=== PATIENT | female | born 1990 | race American Indian/Alaskan Native ===

== ENCOUNTER 2016-04-15 21:00 | Inpatient (IN) | payer MEDICAID ==
[2016-04-15] MEDS ORDERED: NACL 0.9% 1000 ML 1,000 ML IV ONE ×2 (22:02→23:32)
--- NOTE | 2016-04-15 22:12 | Emergency Department Report ---
HPI - General Chief Complaint: Hyperglycemia Time Seen by Provider: 04/15/16 22:00 - HPI HPI: Room 20 The patient is a 26-year-old female presenting with a chief complaint of altered mental status hyperglycemia. Patient is nonverbal during exam but appears restless. Per EMS they were called secondary to chest pain and back pain for 4 hours. The patient was restless and found to have a "high" Accu- Chek. Per EMS the patient was presented with an SVT with a rate in the 190s. Patient was given adenosine 6 mg, 12 mg and then 12 mg with improvement of heart rate to the 120s. No rhythm strip was provided by EMS Location: Unknown, see above Duration:, See above Quality: [see above] Severity: [see above] Modifying factors: [see above] Context: [see above] Mode of transportation: EMS ED Past Medical Hx - Past Medical History Hx Diabetes: Yes Hx Seizures: Yes - Family History Family history: no significant - Social History Smoking Status: Unknown if ever smoked ED Review of Systems ROS: Stated complaint: CHEST/BACK PAIN Other details as noted in HPI Comment: Unobtainable due to pts medical conditions Physical Exam - Physical Exam Physical Exam: GENERAL: The patient is well-developed well-nourished female lying on stretcher appearing her restless but nonverbal. And does not respond to sternal rub but does have a gag reflex HEENT: Normocephalic. Atraumatic. NECK: Supple. Trachea midline CHEST/LUNGS: Clear to auscultation. There is no respiratory distress noted. HEART/CARDIOVASCULAR: Regular. There is tachycardia. There is no gallop rub or murmur. ABDOMEN: Abdomen is soft, nontender. Patient has normal bowel sounds. There is no abdominal distention. SKIN: There is no rash. There is no edema. There is no diaphoresis. NEURO: The patient is obtunded. Patient moves all extremities well MUSCULOSKELETAL: There is no evidence of acute injury. ED Course - Reevaluation(s) Reevaluation #1: 04/15/16 23:33 Lab called as I still have not received the patient's potassium result. Unable to initiate insulin drip until current potassium token be ascertained. We'll continue to give IV fluids. Lab states they process the potassium now. Urgency of situation expressed to lab and they verbalized understanding ED Medical Decision Making - Lab Data Result diagrams: 04/15/16 22:35 04/15/16 22:35 Laboratory Tests 04/15/16 04/15/16 04/15/16 22:19 22:35 22:35 WBC 21.5 H RBC 5.07 H Hgb 12.7 Hct 48.4 H MCV 96 MCH 25 L MCHC 26 L RDW 19.2 H Plt Count 572 H Add Manual Diff Complete Total Counted 100 Seg Neuts % (Manual) 73.0 H Band Neutrophils % 6.0 Lymphocytes % (Manual) 15.0 Reactive Lymphs % (Man) 0 Monocytes % (Manual) 6.0 Eosinophils % (Manual) 0 Basophils % (Manual) 0 Metamyelocytes % 0 Myelocytes % 0 Promyelocytes % 0 Blast Cells % 0 Nucleated RBC % Not Reportable Seg Neutrophils # Man 15.7 H Band Neutrophils # 1.3 Lymphocytes # (Manual) 3.2 Abs React Lymphs (Man) 0.0 Monocytes # (Manual) 1.3 H Eosinophils # (Manual) 0.0 Basophils # (Manual) 0.0 Metamyelocytes # 0.0 Myelocytes # 0.0 Promyelocytes # 0.0 Blast Cells # 0.0 WBC Morphology Not Reportable Hypersegmented Neuts Not Reportable Hyposegmented Neuts Not Reportable Hypogranular Neuts Not Reportable Smudge Cells Not Reportable Toxic Granulation Not Reportable Toxic Vacuolation Not Reportable Dohle Bodies Not Reportable Pelger-Huet Anomaly Not Reportable Kylie Rods Not Reportable Platelet Estimate Appears increased Clumped Platelets Not Reportable Plt Clumps, EDTA Not Reportable Large Platelets Few Giant Platelets Not Reportable Platelet Satelliting Not Reportable Plt Morphology Comment Not Reportable RBC Morphology Not Reportable Dimorphic RBCs Not Reportable Polychromasia Not Reportable Hypochromasia Few Poikilocytosis Not Reportable Anisocytosis 1+ Microcytosis Not Reportable Macrocytosis Not Reportable Spherocytes Not Reportable Pappenheimer Bodies Not Reportable Sickle Cells Not Reportable Target Cells Not Reportable Tear Drop Cells Not Reportable Ovalocytes Not Reportable Helmet Cells Not Reportable [place] Sou[place] Bodies Not Reportable [place] Rings Not Reportable [place] Cells Not Reportable Bite Cells Not Reportable Crenated Cell Not Reportable Elliptocytes Not Reportable Acanthocytes (Spur) Not Reportable Rouleaux Not Reportable Hemoglobin C Crystals Not Reportable Schistocytes Not Reportable Malaria parasites Not Reportable Antoine Bodies Not Reportable Hem Pathologist Commnt No VBG pH Sodium 132 L Potassium 7.5 H* Chloride 87.0 L Carbon Dioxide 5 L* Anion Gap 48 BUN 27 H Creatinine 1.6 H Estimated GFR 47 BUN/Creatinine Ratio 16.87 Glucose 1289 H* Calcium 9.3 Total Creatine Kinase CK-MB (CK-2) CK-MB (CK-2) Rel Index Troponin T < 0.010 TSH Free T4 Urine Color Colorless Urine Turbidity Clear Urine pH 5.0 Ur Specific [place] 1.018 Urine Protein 30 mg/dl Urine Glucose (UA) >=500 Urine Ketones 20 Urine Blood Sm Urine Nitrite Neg Ur Reducing Substances Not Reportable Urine Bilirubin Neg Urine Ictotest Not Reportable Urine Urobilinogen < 2.0 Ur Leukocyte Esterase Neg Urine WBC (Auto) < 1.0 Urine RBC (Auto) 2.0 U Epithel Cells (Auto) 1.0 Urine Bacteria (Auto) 1+ Urine Mucus Few Urine HCG, Qual Negative Ketones 108.5 H 04/15/16 04/15/16 04/15/16 22:35 22:35 22:35 WBC RBC Hgb Hct MCV MCH MCHC RDW Plt Count Add Manual Diff Total Counted Seg Neuts % (Manual) Band Neutrophils % Lymphocytes % (Manual) Reactive Lymphs % (Man) Monocytes % (Manual) Eosinophils % (Manual) Basophils % (Manual) Metamyelocytes % Myelocytes % Promyelocytes % Blast Cells % Nucleated RBC % Seg Neutrophils # Man Band Neutrophils # Lymphocytes # (Manual) Abs React Lymphs (Man) Monocytes # (Manual) Eosinophils # (Manual) Basophils # (Manual) Metamyelocytes # Myelocytes # Promyelocytes # Blast Cells # WBC Morphology Hypersegmented Neuts Hyposegmented Neuts Hypogranular Neuts Smudge Cells Toxic Granulation Toxic Vacuolation Dohle Bodies Pelger-Huet Anomaly Kylie Rods Platelet Estimate Clumped Platelets Plt Clumps, EDTA Large Platelets Giant Platelets Platelet Satelliting Plt Morphology Comment RBC Morphology Dimorphic RBCs Polychromasia Hypochromasia Poikilocytosis Anisocytosis Microcytosis Macrocytosis Spherocytes Pappenheimer Bodies Sickle Cells Target Cells Tear Drop Cells Ovalocytes Helmet Cells De Sou[place] Bodies [place] Rings Sullivan Cells Bite Cells Crenated Cell Elliptocytes Acanthocytes (Spur) Rouleaux Hemoglobin C Crystals Schistocytes Malaria parasites Antoine Bodies Hem Pathologist Commnt VBG pH 6.817 L* Sodium Potassium Chloride Carbon Dioxide Anion Gap BUN Creatinine Estimated GFR BUN/Creatinine Ratio Glucose Calcium Total Creatine Kinase 65 CK-MB (CK-2) < 1.0 CK-MB (CK-2) Rel Index 1.5 Troponin T < 0.010 TSH 0.359 Free T4 0.98 Urine Color Urine Turbidity Urine pH Ur Specific [place] Urine Protein Urine Glucose (UA) Urine Ketones Urine Blood Urine Nitrite Ur Reducing Substances Urine Bilirubin Urine Ictotest Urine Urobilinogen Ur Leukocyte Esterase Urine WBC (Auto) Urine RBC (Auto) U Epithel Cells (Auto) Urine Bacteria (Auto) Urine Mucus Urine HCG, Qual Ketones - EKG Data -: EKG Interpreted by Me EKG shows normal: sinus rhythm Rate: tachycardia (131 bpm) - EKG Data When compared to previous EKG there are: previous EKG unavailable 04/16/16 00:17 Called into the room because moderate patient had a heart rate of 240. I suspect this is secondary to the computer misreading T waves as QRS complexes. Second EKG revealed a true heart rate of approximately 140 bpm - Differential Diagnosis DKA, SVT Critical care attestation.: If time is entered above; I have spent that time in minutes in the direct care of this critically ill patient, excluding procedure time. ED Disposition Clinical Impression: DKA (diabetic ketoacidoses), Tachycardia, Dehydration Disposition: OP ADMITTED IP TO THIS HOSP Is pt being admited?: Yes Does the pt Need Aspirin: No Condition: Serious Instructions: Diabetic Ketoacidosis (ED) Referrals: PRIMARY CARE, [Primary Care Provider] - 3-5 Days Time of Disposition: 23:59 (hospitalist paged)
[2016-04-15 23:07] LABS: Mean Corpuscular HGB Conc 26 % (30-34); Mean Corpuscular Volume 96 fl (79-97); Platelet Count 572 K/mm3 (140-440); Red Blood Count 5.07 M/mm3 (3.65-5.03); Red Cell Distribution Width 19.2 % (13.2-15.2)
[2016-04-15 23:08] LABS: Hematocrit 48.4 % (30.3-42.9); Hemoglobin 12.7 gm/dl (10.1-14.3); Mean Corpuscular Hemoglobin 25 pg (28-32); White Blood Count 21.5 K/mm3 (4.5-11.0)
[2016-04-15] MEDS ORDERED: SODIUM BICARBONATE IV ONE (23:13)
[2016-04-15 23:14] LABS: Bacteria,Urine 1+ /HPF (Negative); Bilirubin,Urine NEG (Negative); Blood,Urine SM (Negative); Ketones,Urine 20 mg/dL (Negative); Leukocyte Esterase,Urine NEG (Negative); Mucus,Urine FEW /HPF; Nitrite,Urine NEG (Negative); Urobilinogen,Urine < 2.0 mg/dL (<2.0); WBC,Urine < 1.0 /HPF (0.0-6.0)
[2016-04-15 23:24] LABS: Creatine Kinase 65 units/L (30-135)
[2016-04-15 23:33] LABS: Creatine Kinase MB < 1.0 ng/mL (0.0-4.0)
[2016-04-15] MEDS ORDERED: NovoLIN R 100 UNITS in NACL 0.9% 99 ML IV SCH (23:45)
[2016-04-15 23:48] LABS: BUN/Creatinine Ratio 16.87; Blood Urea Nitrogen 27 mg/dL (7-17); Calcium 9.3 mg/dL (8.4-10.2); Sodium 132 mmol/L (137-145)
[2016-04-15 23:52] LABS: Anisocytosis 1+; Basophils % (Manual) 0 % (0.0-1.8); Blastocytes % (Manual) 0 %; Eosinophils % (Manual) 0 % (0.0-4.3); Hypochromasia Few
[2016-04-15 23:53] LABS: Diff Status Complete; Large Platelets Few; Platelet Estimate Appears Increased
[2016-04-15 23:55] LABS: Carbon Dioxide 5 mmol/L (22-30)
[2016-04-15] MEDS ORDERED: D50W (25GM) IV PRN (23:55)
[2016-04-15 23:56] LABS: Anion Gap 48 mmol/L; Potassium 7.5 mmol/L (3.6-5.0)
[2016-04-16 00:01] LABS: B-Hydroxybutyrate 108.5 mg/dL (0.2-2.8); Glucose 1289 mg/dL (65-100)
[2016-04-16] MEDS ORDERED: NACL 0.9% 1000 ML 1,000 ML IV ONE (00:32)
[2016-04-16] MEDS ORDERED: CALCIUM CHLORIDE 1,000 MG in NACL 0.9% 100 ML IV ONE (00:32)
[2016-04-16] MEDS ORDERED: ROCEPHIN/NS 1 GM/50 ML 50 ML IV SCH (00:33)
[2016-04-16 00:47] LABS: BUN/Creatinine Ratio 17.33; Calcium 9.7 mg/dL (8.4-10.2); Chloride 86.8 mmol/L (98-107); Magnesium 3.5 mg/dL (1.7-2.3); Phosphorous 11.5 mg/dL (2.5-4.5)
[2016-04-16] MEDS ORDERED: NACL 0.9% 1000 ML 1,000 ML IV SCH (01:00)
[2016-04-16 01:03] LABS: Potassium 7.4 mmol/L (3.6-5.0)
--- NOTE | 2016-04-16 01:18 | History and Physical Report ---
History of Present Illness Date of examination: 04/16/16 Date of admission: 04/16/16 00:34 Medications and Allergies Allergies Allergy/AdvReac Type Severity Reaction Status Date / Time No Known Allergies Allergy Unverified 04/15/16 21:26 Active Meds: Active Medications Dextrose (D50w (25gm)) 0 ml IV ONCE PRN PRN Reason: Hypoglycemia Insulin Human Regular 100 (units/ Sodium Chloride) 100 mls @ 6 mls/hr IV TITR GENIE; 6 UNITS/HR PRN Reason: Protocol Ceftriaxone Sodium (Rocephin/Ns 1 Gm/50 Ml) 50 mls @ 100 mls/hr IV Q24HR GENIE PRN Reason: Protocol Sodium Chloride (Nacl 0.9% 1000 Ml) 1,000 mls @ 150 mls/hr IV DIRECT GENIE Sodium Chloride (Nacl 0.9% 1000 Ml) 1,000 mls @ 999 mls/hr IV ONCE ONE Stop: 04/16/16 01:32 Exam - Physical Exam Narrative exam: Gen. appearance: Patient lying in bed, no apparent distress HEENT: Normocephalic, atraumatic, pupils equally round and reactive to light, unable to do extraocular movement, and no sclericterus,. No JVD or thyromegaly or nodule,neck supple, no carotid bruit ,mucous membranes moist, no exudate or erythema Heart: S1, S2, regular rate and rhythm Lungs: Clear to auscultation bilaterally, breathing comfortable Abdomen: Positive bowel sounds, nontender, nondistended, no organomegaly Extremity: No edema, cyanosis, clubbing Skin: No rash, nodules, warm, dry Neuro: Lethargic - Constitutional Vitals: Temp Pulse Resp BP Pulse Ox 30 H 98 04/16/16 01:05 04/16/16 01:05 Results - Labs CBC & Chem 7: 04/15/16 22:35 04/16/16 00:22 - Imaging and Cardiology EKG: image reviewed (st 120) Assessment and Plan Severe DKA Metabolic acidosis Hyperkalemia Leukocytosis, probably stress and use, rule out infection Dehydration Admits medicine Start aggressive IV fluids, insulin drip Give bicarbonate, calcium, monitor potassium, fingersticks and serial chemistry Start IV Rocephin, check lactate, chest x-ray, follow blood cultures Consult critical care Start DVT prophylaxis
[2016-04-16] MEDS ORDERED: ROCEPHIN/NS 1 GM/50 ML 50 ML IV ONE (01:25)
--- NOTE | 2016-04-16 01:34 | Admit Criteria Form ---
Admission Criteria Documentation: DIABETES Clinical Indications for Admission to Inpatient Care (Place 'X' for any and all applicable criteria): Admission is indicated by presence of ALL (if I & II) or ANY ONE (if III or IV) of the following (1)(2)(3)(4): [ ]I. Diabetes is uncontrolled as indicated by ANY ONE of the following: [ ]a) Diabetic ketoacidosis as indicated by ALL of the following (8): [ ]i) Hyperglycemia (eg, plasma glucose greater than 200 mg/ dL (11.1 mmol/L)) [ ]ii) Acidosis (eg, arterial pH less than 7.30, serum bicarbonate level less than 15 mEq/L (mmol/L)) [ ]iii) Moderate ketonuria or ketonemia [ ]b) Hyperglycemic hyperosmolar state as indicated by ALL of the following(9)(10): [ ]i) Neurologic dysfunction (eg, stupor, coma, hemiparesis , seizure)(13) [ ]ii) Plasma glucose greater than 600 mg/dL (33.3 mmol/L) [ ]iii) Serum osmolality greater than 320 mOsm/kg (mmol/kg) [ ]c) Severe signs or symptoms secondary to hyperglycemia indicated by ANY ONE of the following: [ ]i) Altered mental status(10) [ ]ii) Significant hypovolemia or dehydration [ ]iii) Intractable nausea or vomiting [ ]iv) Unexplained fever or severe infection [ ]v) Severe electrolyte abnormality (eg, hypokalemia, hyperkalemia, hypernatremia) [ ]II. Management at other levels of care (Also use Diabetes: Observation Care as appropriate) is not feasible because of ANY ONE of the following: [ ]a) Condition was not adequately corrected with treatment at other levels of care. [ ]b) Treatment at other levels of care is not appropriate because of condition severity (eg, hyperosmolar coma). [X ]III. Contraindications and/or Inappropriate clinical situations for Observational Care in patients with Diabetes, when ANY ONE of the following is required: [ ]a) Patient require specific diagnostic workup or therapeutic intervention 22 [ X]b) Patient with abnormal vital signs or altered mental status 23 [ ]IV. General contraindications and/or Inappropriate clinical situations for Observational Care in patients with Diabetes, when ANY ONE of the following is required: [ ]a) Prediction of prolongation of LOS based on ANY ONE of the following may be considered as a contraindication for observational care 2, 3, 4, 5, 6, 7, 8, 9, 10, 11 [ ]i) Age > 65 yrs. [ ]ii) Patient arriving by ambulance [ ]iii) Patient with high acuity [ ]iv) Patient requiring vital sign monitoring [ ]v) Patient on IV medication [ ]b) Systolic blood pressures 180mmHg 3,12 [ ]c) Patient with altered mental status including delirium and other alteration of consciousness, (3) [ ]d) Patient whose discharge disposition will be to a longterm home or rehabilitation home should not be managed in Emergency Department Observation Unit. CMS rule requires 3 days hospital stay before such placement.3,13 [ ]e) Patient with failure to thrive due to broad array of etiologies 3,16,17 [ ]f) Inability to ambulate 3,14 Extended stay beyond goal length of stay may be needed for(3)(20): [ ]a) Treatment of precipitating causes [ ]b) Development of hypoglycemia [ ]c) Complications of treatment [ ]d) Complications of decompensated diabetes (eg, acute gastric dilatation, persistent metabolic or neurologic derangement) [ ]e) Active Comorbidities [ ]f) Older patients( 65 years or older) The original [email or web address] content created by [email or web address] has been revised. The portions of the content which have been revised are identified through the use of italic text or in bold,and [facility] has neither reviewed nor approved the modified material. All other unmodified content is copyright [email or web address]. Please see references footnoted in the original [email or web address] edition 2016 Admission Criteria Met: Yes
[2016-04-16] MEDS ORDERED: NACL 0.9% 1000 ML 1,000 ML ONE (02:38)
[2016-04-16 03:42] LABS: BUN/Creatinine Ratio 15.88; Calcium 10.2 mg/dL (8.4-10.2); Chloride 105.6 mmol/L (98-107); Potassium 5.3 mmol/L (3.6-5.0)
[2016-04-16] MEDS ORDERED: TYLENOL PR PRN (04:27)
[2016-04-16] MEDS ORDERED: NovoLIN R 100 UNITS in NACL 0.9% 99 ML IV SCH (04:27)
[2016-04-16] MEDS ORDERED: ZOFRAN IV PRN (04:27)
[2016-04-16] MEDS ORDERED: D50W (25GM) IV PRN ×4 (04:27→21:05)
[2016-04-16 05:29] LABS: BUN/Creatinine Ratio 16.66; Calcium 10.1 mg/dL (8.4-10.2); Chloride 111.7 mmol/L (98-107); Magnesium 2.9 mg/dL (1.7-2.3)
[2016-04-16] MEDS: D5/0.45NS 1,000 ML IV SCH ×3 (06:25→21:07)
--- NOTE | 2016-04-16 07:39 | XRay Report ---
CHEST ONE VIEW INDICATION: Altered mental status. COMPARISON: None similar at this institution. FINDINGS: Portable, frontal chest radiographs, 2 images, demonstrate normal cardiomediastinal silhouette. Clear lungs. Unremarkable bones. Extrinsic EKG leads. CONCLUSION: No acute disease in the chest. Thank you for the opportunity to participate in this patient's care.
--- NOTE | 2016-04-16 09:37 | Consultation ---
History of Present Illness - Reason for Consult Consult date: 04/16/16 DKA/ ICU care - History of Present Illness 26 y/o female diabetic, admitted with DKA. Per patient ran out of insulin for approximately one day. Blood sugar greater than 1000 on admission. Started on insulin drip. Last anion gap was 34. Remainder is negative. Past History Past Medical History: diabetes Past Surgical History: No surgical history Social history: no significant social history Medications and Allergies Allergies Allergy/AdvReac Type Severity Reaction Status Date / Time No Known Allergies Allergy Unverified 04/15/16 21:26 Home Medications Medication Instructions Recorded Confirmed Last Taken Type Unobtainable 04/16/16 04/16/16 Unknown History Active Meds: Active Medications Acetaminophen (Tylenol) 650 mg PO Q6H PRN PRN Reason: Pain Acetaminophen (Tylenol) 650 mg MA Q6H PRN PRN Reason: Pain MILD(1-3)/Fever >100.5/AU Dextrose (D50w (25gm)) 0 ml IV ONCE PRN PRN Reason: Hypoglycemia Enoxaparin Sodium (Lovenox) 40 mg SUB-Q QDAY@1000 GENIE Ceftriaxone Sodium (Rocephin/Ns 1 Gm/50 Ml) 50 mls @ 100 mls/hr IV Q24HR GENIE PRN Reason: Protocol Last Admin: 04/16/16 01:37 Dose: 100 mls/hr Dextrose/Sodium Chloride (D5/0.45ns) 1,000 mls @ 150 mls/hr IV DIRECT GENIE Last Admin: 04/16/16 06:25 Dose: 150 mls/hr Insulin Human Regular 100 (units/ Sodium Chloride) 100 mls @ 1 mls/hr IV TITR GENIE; 1 UNITS/HR PRN Reason: Protocol Ondansetron HCl (Zofran) 4 mg IV Q8H PRN PRN Reason: N/V unrelieved by Reglan Review of Systems All systems: negative Constitutional: other (thirsty, dry mouth) Exam - Constitutional Vitals: Temp Pulse Resp BP Pulse Ox 99.3 F 130 H 15 115/76 97 04/16/16 08:00 04/16/16 09:00 04/16/16 09:00 04/16/16 09:00 04/16/16 09:00 General appearance: Present: no acute distress, disheveled, other (multiple tattoos) - EENT Eyes: Present: PERRL, EOM intact ENT: hearing intact, clear oral mucosa - Neck Neck: Present: supple - Respiratory Respiratory effort: normal Respiratory: bilateral: CTA - Cardiovascular Rhythm: regular (sinus tachycardia) - Extremities Extremities: no ischemia - Abdominal General gastrointestinal: Present: soft, non-tender Female genitourinary: Present: deferred - Rectal Rectal Exam: deferred - Integumentary Integumentary: Present: warm - Musculoskeletal Musculoskeletal: strength equal bilaterally - Neurologic Neurologic: CNII-XII intact Results - Labs CBC & Chem 7: 04/15/16 22:35 04/16/16 04:43 Labs: Abnormal lab results 04/16/16 04/16/16 04/16/16 Range/Units 03:20 03:20 04:43 Sodium 148 H D 152 H (137-145) mmol/L Potassium 5.3 H D (3.6-5.0) mmol/L Chloride 111.7 H (98-107) mmol/L Carbon Dioxide 5 L* 7 L* (22-30) mmol/L BUN 27 H 25 H (7-17) mg/dL Creatinine 1.7 H 1.5 H (0.7-1.2) mg/dL Glucose 725 H* 465 H (65-100) mg/dL POC Glucose (70-105) Lactic Acid 7.9 H* (0.7-2.0) mmol/L Phosphorus 2.0 L D (2.5-4.5) mg/dL Magnesium 2.9 H (1.7-2.3) mg/dL 04/16/16 04/16/16 Range/Units 04:55 06:12 Sodium (137-145) mmol/L Potassium (3.6-5.0) mmol/L Chloride (98-107) mmol/L Carbon Dioxide (22-30) mmol/L BUN (7-17) mg/dL Creatinine (0.7-1.2) mg/dL Glucose (65-100) mg/dL POC Glucose 378 H 254 H (70-105) Lactic Acid (0.7-2.0) mmol/L Phosphorus (2.5-4.5) mg/dL Magnesium (1.7-2.3) mg/dL - Imaging and Cardiology Chest x-ray: image reviewed (clear) Assessment and Plan 26 y/o female with dka 1. Continue Insulin Drip 2. Needs normal saline for now until blood sugar is less than 250 then switch to D5W with 1/2 normal saline 3. MOnitor potassium 4. Repeat lactic acid levels 5. Hold on abx therapy 6. Repeat CBC in am. CCT 31 minutes.
[2016-04-16 09:41] LABS: Hematocrit 39.6 % (30.3-42.9); Hemoglobin 12.5 gm/dl (10.1-14.3); Mean Corpuscular HGB Conc 32 % (30-34); Mean Corpuscular Volume 79 fl (79-97); Platelet Count 455 K/mm3 (140-440); Red Blood Count 5.04 M/mm3 (3.65-5.03); Red Cell Distribution Width 16.8 % (13.2-15.2)
[2016-04-16 09:43] LABS: White Blood Count 24.3 K/mm3 (4.5-11.0)
[2016-04-16 09:44] LABS: Mean Corpuscular Hemoglobin 25 pg (28-32)
[2016-04-16] MEDS: LOVENOX SUB-Q SCH (09:57)
[2016-04-16 10:02] LABS: BUN/Creatinine Ratio 20.83; Blood Urea Nitrogen 25 mg/dL (7-17); Carbon Dioxide 16 mmol/L (22-30); Chloride 123.2 mmol/L (98-107); Glucose 184 mg/dL (65-100); Potassium 4.5 mmol/L (3.6-5.0); Sodium 158 mmol/L (137-145)
[2016-04-16 10:03] LABS: Anion Gap 23 mmol/L
[2016-04-16] MEDS: TYLENOL PO PRN (11:26)
[2016-04-16] MEDS: KEPPRA PO SCH ×2 (11:29→21:08)
[2016-04-16 16:25] LABS: Anion Gap 20 mmol/L; BUN/Creatinine Ratio 24.44; Blood Urea Nitrogen 22 mg/dL (7-17); Calcium 9.1 mg/dL (8.4-10.2); Carbon Dioxide 17 mmol/L (22-30); Chloride 119.2 mmol/L (98-107); Glucose 136 mg/dL (65-100); Potassium 4.7 mmol/L (3.6-5.0); Sodium 151 mmol/L (137-145)
--- NOTE | 2016-04-16 17:09 | Progress Note ---
Assessment and Plan Assessment and plan: 1. DKA due to non compliance- will transition to sc inuslin calculated AG 14.8; consistent carb diet; monitor accucheks; cotn IVF; overlap insulin gtt for 4 hrs and will d/c after 4 hrs if AG remains closed 2. Leukocytosis- due to DKA- montior 3. HYpernatrermi- due to dehydration- cont IVF; monitor 4. Seizure cont keppra; stable 5. DVT prophylaxis- lovenox CCT exclusive of all other billable procedures 34 minutes History Interval history: F/u DKA PAtient seen at the bedside; lethargic; she has been non compliant with insulin Hospitalist Physical - Constitutional Vitals: Temp Pulse Resp BP Pulse Ox 98.9 F 109 H 20 115/63 99 04/16/16 16:20 04/16/16 16:20 04/16/16 16:00 04/16/16 16:00 04/16/16 16:00 General appearance: Present: no acute distress, other (mm dry) - EENT Eyes: Present: PERRL, EOM intact. Absent: scleral icterus, conjunctival injection ENT: hearing intact - Neck Neck: Present: supple, normal ROM. Absent: enlarged thyroid, masses or JVD - Respiratory Respiratory effort: normal Respiratory: negative: diminished, rales, rhonchi, wheezing - Cardiovascular Rhythm: regular Heart Sounds: Present: S1 & S2. Absent: gallop - Extremities Extremities: no ischemia, pulses intact, pulses symmetrical, No edema Peripheral Pulses: within normal limits - Abdominal General gastrointestinal: soft, non-tender, non-distended - Integumentary Integumentary: Present: clear - Psychiatric Psychiatric: cooperative - Neurologic Neurologic: CNII-XII intact, moves all extremities Results - Labs CBC & Chem 7: 04/16/16 09:16 04/16/16 15:25 Labs: Laboratory Last Values WBC 24.3 K/mm3 (4.5-11.0) H 04/16/16 09:16 RBC 5.04 M/mm3 (3.65-5.03) H 04/16/16 09:16 Hgb 12.5 gm/dl (10.1-14.3) 04/16/16 09:16 Hct 39.6 % (30.3-42.9) D 04/16/16 09:16 MCV 79 fl (79-97) D 04/16/16 09:16 MCH 25 pg (28-32) L 04/16/16 09:16 MCHC 32 % (30-34) 04/16/16 09:16 RDW 16.8 % (13.2-15.2) H 04/16/16 09:16 Plt Count 455 K/mm3 (140-440) H 04/16/16 09:16 Add Manual Diff Complete 04/15/16 22:35 Total Counted 100 04/15/16 22:35 Seg Neuts % (Manual) 73.0 % (40.0-70.0) H 04/15/16 22:35 Band Neutrophils % 6.0 % 04/15/16 22:35 Lymphocytes % (Manual) 15.0 % (13.4-35.0) 04/15/16 22:35 Reactive Lymphs % (Man) 0 % 04/15/16 22:35 Monocytes % (Manual) 6.0 % (0.0-7.3) 04/15/16 22:35 Eosinophils % (Manual) 0 % (0.0-4.3) 04/15/16 22:35 Basophils % (Manual) 0 % (0.0-1.8) 04/15/16 22:35 Metamyelocytes % 0 % 04/15/16 22:35 Myelocytes % 0 % 04/15/16 22:35 Promyelocytes % 0 % 04/15/16 22:35 Blast Cells % 0 % 04/15/16 22:35 Nucleated RBC % Not Reportable 04/15/16 22:35 Seg Neutrophils # Man 15.7 K/mm3 (1.8-7.7) H 04/15/16 22:35 Band Neutrophils # 1.3 K/mm3 04/15/16 22:35 Lymphocytes # (Manual) 3.2 K/mm3 (1.2-5.4) 04/15/16 22:35 Abs React Lymphs (Man) 0.0 K/mm3 04/15/16 22:35 Monocytes # (Manual) 1.3 K/mm3 (0.0-0.8) H 04/15/16 22:35 Eosinophils # (Manual) 0.0 K/mm3 (0.0-0.4) 04/15/16 22:35 Basophils # (Manual) 0.0 K/mm3 (0.0-0.1) 04/15/16 22:35 Metamyelocytes # 0.0 K/mm3 04/15/16 22:35 Myelocytes # 0.0 K/mm3 04/15/16 22:35 Promyelocytes # 0.0 K/mm3 04/15/16 22:35 Blast Cells # 0.0 K/mm3 04/15/16 22:35 WBC Morphology Not Reportable 04/15/16 22:35 Hypersegmented Neuts Not Reportable 04/15/16 22:35 Hyposegmented Neuts Not Reportable 04/15/16 22:35 Hypogranular Neuts Not Reportable 04/15/16 22:35 Smudge Cells Not Reportable 04/15/16 22:35 Toxic Granulation Not Reportable 04/15/16 22:35 Toxic Vacuolation Not Reportable 04/15/16 22:35 Dohle Bodies Not Reportable 04/15/16 22:35 Pelger-Huet Anomaly Not Reportable 04/15/16 22:35 Kylie Rods Not Reportable 04/15/16 22:35 Platelet Estimate Appears increased 04/15/16 22:35 Clumped Platelets Not Reportable 04/15/16 22:35 Plt Clumps, EDTA Not Reportable 04/15/16 22:35 Large Platelets Few 04/15/16 22:35 Giant Platelets Not Reportable 04/15/16 22:35 Platelet Satelliting Not Reportable 04/15/16 22:35 Plt Morphology Comment Not Reportable 04/15/16 22:35 RBC Morphology Not Reportable 04/15/16 22:35 Dimorphic RBCs Not Reportable 04/15/16 22:35 Polychromasia Not Reportable 04/15/16 22:35 Hypochromasia Few 04/15/16 22:35 Poikilocytosis Not Reportable 04/15/16 22:35 Anisocytosis 1+ 04/15/16 22:35 Microcytosis Not Reportable 04/15/16 22:35 Macrocytosis Not Reportable 04/15/16 22:35 Spherocytes Not Reportable 04/15/16 22:35 Pappenheimer Bodies Not Reportable 04/15/16 22:35 Sickle Cells Not Reportable 04/15/16 22:35 Target Cells Not Reportable 04/15/16 22:35 Tear Drop Cells Not Reportable 04/15/16 22:35 Ovalocytes Not Reportable 04/15/16 22:35 Helmet Cells Not Reportable 04/15/16 22:35 De Souza-[place] Bodies Not Reportable 04/15/16 22:35 [place] Rings Not Reportable 04/15/16 22:35 Rembert Cells Not Reportable 04/15/16 22:35 Bite Cells Not Reportable 04/15/16 22:35 Crenated Cell Not Reportable 04/15/16 22:35 Elliptocytes Not Reportable 04/15/16 22:35 Acanthocytes (Spur) Not Reportable 04/15/16 22:35 Rouleaux Not Reportable 04/15/16 22:35 Hemoglobin C Crystals Not Reportable 04/15/16 22:35 Schistocytes Not Reportable 04/15/16 22:35 Malaria parasites Not Reportable 04/15/16 22:35 Antoine Bodies Not Reportable 04/15/16 22:35 Hem Pathologist Commnt No 04/15/16 22:35 VBG pH 6.817 (7.320-7.420) L* 04/15/16 22:35 Sodium 151 mmol/L (137-145) H 04/16/16 15:25 Potassium 4.7 mmol/L (3.6-5.0) 04/16/16 15:25 Chloride 119.2 mmol/L (98-107) H 04/16/16 15:25 Carbon Dioxide 17 mmol/L (22-30) L 04/16/16 15:25 Anion Gap 20 mmol/L 04/16/16 15:25 BUN 22 mg/dL (7-17) H 04/16/16 15:25 Creatinine 0.9 mg/dL (0.7-1.2) 04/16/16 15:25 Estimated GFR > 60 ml/min 04/16/16 15:25 BUN/Creatinine Ratio 24.44 % 04/16/16 15:25 Glucose 136 mg/dL (65-100) H 04/16/16 15:25 POC Glucose 165 (70-105) H 04/16/16 13:40 Lactic Acid 1.6 mmol/L (0.7-2.0) 04/16/16 15:25 Calcium 9.1 mg/dL (8.4-10.2) 04/16/16 15:25 Phosphorus 2.0 mg/dL (2.5-4.5) L D 04/16/16 04:43 Magnesium 2.9 mg/dL (1.7-2.3) H 04/16/16 04:43 Total Creatine Kinase 65 units/L (30-135) 04/15/16 22:35 CK-MB (CK-2) < 1.0 ng/mL (0.0-4.0) 04/15/16 22:35 CK-MB (CK-2) Rel Index 1.5 (0-4) 04/15/16 22:35 Troponin T < 0.010 ng/mL (0.00-0.029) 04/16/16 03:20 TSH 0.359 mlU/mL (0.270-4.200) 04/15/16 22:35 Free T4 0.98 ng/dL (0.76-1.46) 04/15/16 22:35 Urine Color Colorless (Yellow) 04/15/16 22:19 Urine Turbidity Clear (Clear) 04/15/16 22:19 Urine pH 5.0 (5.0-7.0) 04/15/16 22:19 Ur Specific [place] 1.018 (1.003-1.030) 04/15/16 22:19 Urine Protein 30 mg/dl mg/dL (Negative) 04/15/16 22:19 Urine Glucose (UA) >=500 mg/dL (Negative) 04/15/16 22:19 Urine Ketones 20 mg/dL (Negative) 04/15/16 22:19 Urine Blood Sm (Negative) 04/15/16 22:19 Urine Nitrite Neg (Negative) 04/15/16 22:19 Ur Reducing Substances Not Reportable 04/15/16 22:19 Urine Bilirubin Neg (Negative) 04/15/16 22:19 Urine Ictotest Not Reportable 04/15/16 22: Urine Urobilinogen < 2.0 mg/dL (<2.0) 04/15/16 22:19 Ur Leukocyte Esterase Neg (Negative) 04/15/16 22:19 Urine WBC (Auto) < 1.0 /HPF (0.0-6.0) 04/15/16 22:19 Urine RBC (Auto) 2.0 /HPF (0.0-6.0) 04/15/16 22:19 U Epithel Cells (Auto) 1.0 /HPF (0-13.0) 04/15/16 22:19 Urine Bacteria (Auto) 1+ /HPF (Negative) 04/15/16 22:19 Urine Mucus Few /HPF 04/15/16 22:19 Urine HCG, Qual Negative (Negative) 04/15/16 22:19 Ketones 108.5 mg/dL (0.2-2.8) H 04/15/16 22:35
[2016-04-16] MEDS ORDERED: LEVEMIR SUB-Q ONE (18:00)
[2016-04-16] MEDS: NOVOLOG SUB-Q SCH (21:38)
[2016-04-16 22:35] LABS: Blood Urea Nitrogen 18 mg/dL (7-17); Carbon Dioxide 18 mmol/L (22-30); Glucose 146 mg/dL (65-100)
[2016-04-16 22:36] LABS: Anion Gap 21 mmol/L; Chloride 112.1 mmol/L (98-107); Potassium 3.7 mmol/L (3.6-5.0); Sodium 147 mmol/L (137-145)
[2016-04-16] MEDS: ZOSYN/NS 4.5GM/100ML 100 ML IV SCH (23:37)
[2016-04-17] MEDS: ZOSYN/NS 4.5GM/100ML 100 ML IV SCH ×2 (02:51→06:00)
[2016-04-17] MEDS: TYLENOL PO PRN (07:49)
[2016-04-17] MEDS: NOVOLOG SUB-Q SCH ×7 (07:51→22:50)
[2016-04-17] MEDS: D5/0.45NS 1,000 ML IV SCH (08:52)
--- NOTE | 2016-04-17 09:20 | Progress Note ---
Assessment and Plan 26 y/o female with dka 1. Figure out amount of total insulin in the last 24 hours and then administer half in long acting insulin divided up BID vs daily, pending on patient ability to obtain medication. 2. Discontinue insulin drip 2 hours after administration of long acting insulin 3. Feed the patient. 4. Transition to floor either late morning or early afternoon CCT 31 minutes. Subjective Date of service: 04/17/16 Interval history: no other chemistry since last night. Patient ordered breakfast this am. Asleep. Appears to have drank juice but did not eat food. Objective - Constitutional Vitals: Vital Signs - 12hr 04/16/16 04/16/16 04/17/16 22:01 23:00 00:00 Temperature 97.2 F L Pulse Rate 104 H 102 H 91 H Respiratory 13 14 14 Rate Blood Pressure 102/60 105/57 113/79 O2 Sat by Pulse 100 100 100 Oximetry 04/17/16 04/17/16 04/17/16 00:15 01:00 02:00 Temperature Pulse Rate 93 H 100 H 96 H Respiratory 15 13 12 Rate Blood Pressure 113/79 110/72 114/46 O2 Sat by Pulse 100 100 100 Oximetry 04/17/16 04/17/16 04/17/16 02:23 03:00 04:00 Temperature 98.4 F Pulse Rate 93 H 94 H 92 H Respiratory 13 13 12 Rate Blood Pressure 110/72 114/64 101/52 O2 Sat by Pulse 100 100 100 Oximetry 04/17/16 04/17/16 04/17/16 05:00 05:35 06:00 Temperature Pulse Rate 92 H 93 H 98 H Respiratory 13 14 13 Rate Blood Pressure 96/59 96/59 110/68 O2 Sat by Pulse 100 100 100 Oximetry 04/17/16 04/17/16 04/17/16 06:11 07:00 08:00 Temperature 98.3 F Pulse Rate 91 H 93 H Respiratory 13 13 Rate Blood Pressure 110/68 104/69 O2 Sat by Pulse 100 100 Oximetry 04/17/16 08:01 Temperature Pulse Rate 86 Respiratory 16 Rate Blood Pressure 104/69 O2 Sat by Pulse 100 Oximetry General appearance: Present: no acute distress - EENT Eyes: PERRL, EOM intact ENT: hearing intact - Neck Neck: supple, normal ROM - Respiratory Respiratory effort: normal Respiratory: bilateral: CTA - Breasts Breasts: deferred - Cardiovascular Rhythm: regular Heart Sounds: Present: S1 & S2 Extremities: no ischemia, pulses intact, pulses symmetrical, No edema, Full ROM - Gastrointestinal General gastrointestinal: Present: soft, normal bowel sounds Rectal Exam: deferred - Genitourinary Female genitourinary: deferred - Musculoskeletal Musculoskeletal: strength equal bilaterally - Labs CBC & Chem 7: 04/16/16 09:16 04/16/16 21:50 Labs: Abnormal lab results 04/16/16 04/16/16 04/16/16 Range/Units 07:10 08:07 09:04 WBC (4.5-11.0) K/mm3 RBC (3.65-5.03) M/mm3 MCH (28-32) pg RDW (13.2-15.2) % Plt Count (140-440) K/mm3 Sodium (137-145) mmol/L Chloride (98-107) mmol/L Carbon Dioxide (22-30) mmol/L BUN (7-17) mg/dL Glucose (65-100) mg/dL POC Glucose 217 H 213 H 201 H (70-105) Lactic Acid (0.7-2.0) mmol/L 04/16/16 04/16/16 04/16/16 Range/Units 09:16 09:37 09:54 WBC 24.3 H (4.5-11.0) K/mm3 RBC 5.04 H (3.65-5.03) M/mm3 MCH 25 L (28-32) pg RDW 16.8 H (13.2-15.2) % Plt Count 455 H (140-440) K/mm3 Sodium 158 H (137-145) mmol/L Chloride (98-107) mmol/L Carbon Dioxide 16 L D (22-30) mmol/L BUN 25 H (7-17) mg/dL Glucose 184 H (65-100) mg/dL POC Glucose 186 H (70-105) Lactic Acid (0.7-2.0) mmol/L 04/16/16 04/16/16 04/16/16 Range/Units 09:55 10:59 12:01 WBC (4.5-11.0) K/mm3 RBC (3.65-5.03) M/mm3 MCH (28-32) pg RDW (13.2-15.2) % Plt Count (140-440) K/mm3 Sodium (137-145) mmol/L Chloride (98-107) mmol/L Carbon Dioxide (22-30) mmol/L BUN (7-17) mg/dL Glucose (65-100) mg/dL POC Glucose 188 H 182 H (70-105) Lactic Acid 4.7 H* (0.7-2.0) mmol/L 04/16/16 04/16/16 04/16/16 Range/Units 13:40 14:31 15:25 WBC (4.5-11.0) K/mm3 RBC (3.65-5.03) M/mm3 MCH (28-32) pg RDW (13.2-15.2) % Plt Count (140-440) K/mm3 Sodium 151 H (137-145) mmol/L Chloride 119.2 H (98-107) mmol/L Carbon Dioxide 17 L (22-30) mmol/L BUN 22 H (7-17) mg/dL Glucose 136 H (65-100) mg/dL POC Glucose 165 H 141 H (70-105) Lactic Acid (0.7-2.0) mmol/L 04/16/16 04/16/16 04/16/16 Range/Units 15:41 16:29 17:39 WBC (4.5-11.0) K/mm3 RBC (3.65-5.03) M/mm3 MCH (28-32) pg RDW (13.2-15.2) % Plt Count (140-440) K/mm3 Sodium (137-145) mmol/L Chloride (98-107) mmol/L Carbon Dioxide (22-30) mmol/L BUN (7-17) mg/dL Glucose (65-100) mg/dL POC Glucose 136 H 142 H 133 H (70-105) Lactic Acid (0.7-2.0) mmol/L 04/16/16 04/16/16 04/16/16 Range/Units 19:36 21:12 21:50 WBC (4.5-11.0) K/mm3 RBC (3.65-5.03) M/mm3 MCH (28-32) pg RDW (13.2-15.2) % Plt Count (140-440) K/mm3 Sodium 147 H (137-145) mmol/L Chloride 112.1 H (98-107) mmol/L Carbon Dioxide 18 L (22-30) mmol/L BUN 18 H (7-17) mg/dL Glucose 146 H (65-100) mg/dL POC Glucose 203 H 150 H (70-105) Lactic Acid (0.7-2.0) mmol/L 04/16/16 Range/Units 21:50 WBC (4.5-11.0) K/mm3 RBC (3.65-5.03) M/mm3 MCH (28-32) pg RDW (13.2-15.2) % Plt Count (140-440) K/mm3 Sodium (137-145) mmol/L Chloride (98-107) mmol/L Carbon Dioxide (22-30) mmol/L BUN (7-17) mg/dL Glucose (65-100) mg/dL POC Glucose (70-105) Lactic Acid 3.9 H* (0.7-2.0) mmol/L
[2016-04-17] MEDS: KEPPRA PO SCH ×2 (09:35→21:58)
[2016-04-17] MEDS: LOVENOX SUB-Q SCH (09:36)
[2016-04-17] MEDS: FIORICET PO PRN ×3 (09:40→23:02)
[2016-04-17] MEDS ORDERED: LEVAQUIN 750MG/150ML 150 ML IV SCH (10:00)
--- NOTE | 2016-04-17 15:00 | Progress Note ---
Assessment and Plan Assessment and plan: 1. UNcontrolled DM with hyperglycemia with resolved DKA due to non compliance- cont levemir and pre meals apidra; consistent carb diet; monitor accucheks; cotn IVF; awaiting transfer to medical floor when bed becomes available 2. Leukocytosis- due to DKA- montior; monitor 3. HYpernatrermi- due to dehydration- cont IVF; monitor 4. Seizure cont keppra; stable 5. DVT prophylaxis- lovenox History Interval history: F/u DKA PAtient seen at the bedside; transitioned to sc insulin yesterday and transfer to floor was held last night by night hospitalist; she was also started on IVB antibiotics by night hospitalist; c/o migraine headache Hospitalist Physical - Constitutional Vitals: Temp Pulse Resp BP Pulse Ox 98.4 F 94 H 14 121/70 100 04/17/16 12:00 04/17/16 12:01 04/17/16 12:01 04/17/16 12:01 04/17/16 11:01 General appearance: Present: no acute distress - EENT Eyes: Present: PERRL, EOM intact. Absent: scleral icterus, conjunctival injection ENT: hearing intact, clear oral mucosa, no oropharyngeal erythema, no poor dentition - Neck Neck: Present: supple, normal ROM. Absent: enlarged thyroid, masses or JVD - Respiratory Respiratory effort: normal Respiratory: negative: diminished, rales, rhonchi, wheezing - Cardiovascular Rhythm: regular Heart Sounds: Present: S1 & S2 - Extremities Extremities: no ischemia, pulses intact, pulses symmetrical, No edema Peripheral Pulses: within normal limits - Abdominal General gastrointestinal: soft, non-tender, non-distended - Integumentary Integumentary: Present: clear - Psychiatric Psychiatric: appropriate mood/affect, intact judgment & insight - Neurologic Neurologic: CNII-XII intact, moves all extremities Results - Labs CBC & Chem 7: 04/16/16 09:16 04/16/16 21:50 Labs: Laboratory Last Values WBC 24.3 K/mm3 (4.5-11.0) H 04/16/16 09:16 RBC 5.04 M/mm3 (3.65-5.03) H 04/16/16 09:16 Hgb 12.5 gm/dl (10.1-14.3) 04/16/16 09:16 Hct 39.6 % (30.3-42.9) D 04/16/16 09:16 MCV 79 fl (79-97) D 04/16/16 09:16 MCH 25 pg (28-32) L 04/16/16 09:16 MCHC 32 % (30-34) 04/16/16 09:16 RDW 16.8 % (13.2-15.2) H 04/16/16 09:16 Plt Count 455 K/mm3 (140-440) H 04/16/16 09:16 Add Manual Diff Complete 04/15/16 22:35 Total Counted 100 04/15/16 22:35 Seg Neuts % (Manual) 73.0 % (40.0-70.0) H 04/15/16 22:35 Band Neutrophils % 6.0 % 04/15/16 22:35 Lymphocytes % (Manual) 15.0 % (13.4-35.0) 04/15/16 22:35 Reactive Lymphs % (Man) 0 % 04/15/16 22:35 Monocytes % (Manual) 6.0 % (0.0-7.3) 04/15/16 22:35 Eosinophils % (Manual) 0 % (0.0-4.3) 04/15/16 22:35 Basophils % (Manual) 0 % (0.0-1.8) 04/15/16 22:35 Metamyelocytes % 0 % 04/15/16 22:35 Myelocytes % 0 % 04/15/16 22:35 Promyelocytes % 0 % 04/15/16 22:35 Blast Cells % 0 % 04/15/16 22:35 Nucleated RBC % Not Reportable 04/15/16 22:35 Seg Neutrophils # Man 15.7 K/mm3 (1.8-7.7) H 04/15/16 22:35 Band Neutrophils # 1.3 K/mm3 04/15/16 22:35 Lymphocytes # (Manual) 3.2 K/mm3 (1.2-5.4) 04/15/16 22:35 Abs React Lymphs (Man) 0.0 K/mm3 04/15/16 22:35 Monocytes # (Manual) 1.3 K/mm3 (0.0-0.8) H 04/15/16 22:35 Eosinophils # (Manual) 0.0 K/mm3 (0.0-0.4) 04/15/16 22:35 Basophils # (Manual) 0.0 K/mm3 (0.0-0.1) 04/15/16 22:35 Metamyelocytes # 0.0 K/mm3 04/15/16 22:35 Myelocytes # 0.0 K/mm3 04/15/16 22:35 Promyelocytes # 0.0 K/mm3 04/15/16 22:35 Blast Cells # 0.0 K/mm3 04/15/16 22:35 WBC Morphology Not Reportable 04/15/16 22:35 Hypersegmented Neuts Not Reportable 04/15/16 22:35 Hyposegmented Neuts Not Reportable 04/15/16 22:35 Hypogranular Neuts Not Reportable 04/15/16 22:35 Smudge Cells Not Reportable 04/15/16 22:35 Toxic Granulation Not Reportable 04/15/16 22:35 Toxic Vacuolation Not Reportable 04/15/16 22:35 Dohle Bodies Not Reportable 04/15/16 22:35 Pelger-Huet Anomaly Not Reportable 04/15/16 22:35 Kylie Rods Not Reportable 04/15/16 22:35 Platelet Estimate Appears increased 04/15/16 22:35 Clumped Platelets Not Reportable 04/15/16 22:35 Plt Clumps, EDTA Not Reportable 04/15/16 22:35 Large Platelets Few 04/15/16 22:35 Giant Platelets Not Reportable 04/15/16 22:35 Platelet Satelliting Not Reportable 04/15/16 22:35 Plt Morphology Comment Not Reportable 04/15/16 22:35 RBC Morphology Not Reportable 04/15/16 22:35 Dimorphic RBCs Not Reportable 04/15/16 22:35 Polychromasia Not Reportable 04/15/16 22:35 Hypochromasia Few 04/15/16 22:35 Poikilocytosis Not Reportable 04/15/16 22:35 Anisocytosis 1+ 04/15/16 22:35 Microcytosis Not Reportable 04/15/16 22:35 Macrocytosis Not Reportable 04/15/16 22:35 Spherocytes Not Reportable 04/15/16 22:35 Pappenheimer Bodies Not Reportable 04/15/16 22:35 Sickle Cells Not Reportable 04/15/16 22:35 Target Cells Not Reportable 04/15/16 22:35 Tear Drop Cells Not Reportable 04/15/16 22:35 Ovalocytes Not Reportable 04/15/16 22:35 Helmet Cells Not Reportable 04/15/16 22:35 De Souza-[place] Bodies Not Reportable 04/15/16 22:35 [place] Rings Not Reportable 04/15/16 22:35 Carlo Cells Not Reportable 04/15/16 22:35 Bite Cells Not Reportable 04/15/16 22:35 Crenated Cell Not Reportable 04/15/16 22:35 Elliptocytes Not Reportable 04/15/16 22:35 Acanthocytes (Spur) Not Reportable 04/15/16 22:35 Rouleaux Not Reportable 04/15/16 22:35 Hemoglobin C Crystals Not Reportable 04/15/16 22:35 Schistocytes Not Reportable 04/15/16 22:35 Malaria parasites Not Reportable 04/15/16 22:35 Antoine Bodies Not Reportable 04/15/16 22:35 Hem Pathologist Commnt No 04/15/16 22:35 VBG pH 6.817 (7.320-7.420) L* 04/15/16 22:35 Sodium 147 mmol/L (137-145) H 04/16/16 21:50 Potassium 3.7 mmol/L (3.6-5.0) D 04/16/16 21:50 Chloride 112.1 mmol/L (98-107) H 04/16/16 21:50 Carbon Dioxide 18 mmol/L (22-30) L 04/16/16 21:50 Anion Gap 21 mmol/L 04/16/16 21:50 BUN 18 mg/dL (7-17) H 04/16/16 21:50 Creatinine 0.8 mg/dL (0.7-1.2) 04/16/16 21:50 Estimated GFR > 60 ml/min 04/16/16 21:50 BUN/Creatinine Ratio 22.50 % 04/16/16 21:50 Glucose 146 mg/dL (65-100) H 04/16/16 21:50 POC Glucose 211 (70-105) H 04/17/16 11:52 Lactic Acid 3.9 mmol/L (0.7-2.0) H* 04/16/16 21:50 Calcium 9.0 mg/dL (8.4-10.2) 04/16/16 21:50 Phosphorus 2.0 mg/dL (2.5-4.5) L D 04/16/16 04:43 Magnesium 2.9 mg/dL (1.7-2.3) H 04/16/16 04:43 Total Creatine Kinase 65 units/L (30-135) 04/15/16 22:35 CK-MB (CK-2) < 1.0 ng/mL (0.0-4.0) 04/15/16 22:35 CK-MB (CK-2) Rel Index 1.5 (0-4) 04/15/16 22:35 Troponin T < 0.010 ng/mL (0.00-0.029) 04/16/16 03:20 TSH 0.359 mlU/mL (0.270-4.200) 04/15/16 22:35 Free T4 0.98 ng/dL (0.76-1.46) 04/15/16 22:35 Urine Color Colorless (Yellow) 04/15/16 22:19 Urine Turbidity Clear (Clear) 04/15/16 22:19 Urine pH 5.0 (5.0-7.0) 04/15/16 22:19 Ur Specific [place] 1.018 (1.003-1.030) 04/15/16 22:19 Urine Protein 30 mg/dl mg/dL (Negative) 04/15/16 22:19 Urine Glucose (UA) >=500 mg/dL (Negative) 04/15/16 22:19 Urine Ketones 20 mg/dL (Negative) 04/15/16 22:19 Urine Blood Sm (Negative) 04/15/16 22:19 Urine Nitrite Neg (Negative) 04/15/16 22:19 Ur Reducing Substances Not Reportable 04/15/16 22:19 Urine Bilirubin Neg (Negative) 04/15/16 22:19 Urine Ictotest Not Reportable 04/15/16 22:19 Urine Urobilinogen < 2.0 mg/dL (<2.0) 04/15/16 22:19 Ur Leukocyte Esterase Neg (Negative) 04/15/16 22:19 Urine WBC (Auto) < 1.0 /HPF (0.0-6.0) 04/15/16 22:19 Urine RBC (Auto) 2.0 /HPF (0.0-6.0) 04/15/16 22:19 U Epithel Cells (Auto) 1.0 /HPF (0-13.0) 04/15/16 22:19 Urine Bacteria (Auto) 1+ /HPF (Negative) 04/15/16 22:19 Urine Mucus Few /HPF 04/15/16 22:19 Urine HCG, Qual Negative (Negative) 04/15/16 22:19 Ketones 108.5 mg/dL (0.2-2.8) H 04/15/16 22:35
[2016-04-17] MEDS ORDERED: LEVEMIR SUB-Q SCH (22:00)
[2016-04-17 22:01] LABS: Basophils % (Auto) 0.6 % (0.0-1.8); Eosinophils % (Auto) 0.2 % (0.0-4.3); Hematocrit 31.2 % (30.3-42.9); Hemoglobin 11.1 gm/dl (10.1-14.3); Mean Corpuscular HGB Conc 36 % (30-34); Mean Corpuscular Hemoglobin 28 pg (28-32); Mean Corpuscular Volume 77 fl (79-97); Platelet Count 331 K/mm3 (140-440); Red Blood Count 4.05 M/mm3 (3.65-5.03); White Blood Count 11.5 K/mm3 (4.5-11.0)
[2016-04-18] MEDS: KEPPRA PO SCH (09:53)
[2016-04-18] MEDS: NOVOLOG SUB-Q SCH ×2 (09:54)
[2016-04-18] MEDS: LOVENOX SUB-Q SCH (09:54)
[2016-04-18] MEDS ORDERED: CLARITIN PO SCH (10:00)
--- NOTE | 2016-04-18 10:08 | Discharge Summary ---
Providers - Providers Date of Admission: 04/16/16 00:34 Date of discharge: 04/18/16 Attending physician: MICHEAL ESPINOSA Primary care physician: [employer] Hospitalization Reason for admission: DKA, metabolic encephalopathy Condition: Serious Pertinent studies: cxr- no acute abn Hospital course: Jenise is a 26-year-old female with diabetes type 1 and who is noncompliant. She presented to the emergency room with altered mental status. She was found to be in diabetic ketoacidosis. She was started on IV fluids and insulin infusion. She was admitted to the ICU. DKA protocol was instituted. Her DKA resolved and she was transitioned to subcutaneous insulin. She was subsequently transferred to the medical floor. Adequate control of her blood glucose was obtained prior to discharge. Patient was counseled about the need to be compliant with insulin regime as well as her follow-up therapy. She also had a leukocytosis on admission which was thought to be related to diabetic ketoacidosis. This improved prior to discharge. Condition at discharge is stable next 32 minutes spent preparing discharge Disposition: DISCHARGED TO HOME OR SELFCARE - Discharge Diagnoses (1) DKA (diabetic ketoacidoses) Status: Acute (2) Dehydration Status: Acute (3) Tachycardia Status: Acute (4) Metabolic encephalopathy Status: Acute Core Measure Documentation - Palliative Care Palliative Care/ Comfort Measures: Not Applicable - Core Measures Any of the following diagnoses?: none Exam - Constitutional Vitals: Temp Pulse Resp BP Pulse Ox 98.4 F 81 15 103/57 100 04/18/16 07:10 04/18/16 07:10 04/18/16 07:10 04/18/16 07:10 04/18/16 07:10 General appearance: Present: no acute distress - EENT Eyes: Present: PERRL, EOM intact. Absent: scleral icterus, conjunctival injection ENT: hearing intact, clear oral mucosa, no oropharyngeal erythema, no poor dentition - Neck Neck: Present: supple, normal ROM. Absent: enlarged thyroid, masses or JVD - Respiratory Respiratory effort: normal Respiratory: negative: diminished, rales, rhonchi, wheezing - Cardiovascular Rhythm: regular Heart Sounds: Present: S1 & S2. Absent: gallop - Extremities Extremities: no ischemia, pulses intact, pulses symmetrical, No edema Peripheral Pulses: within normal limits - Abdominal General gastrointestinal: Present: soft, non-tender, non-distended, normal bowel sounds Female genitourinary: Present: deferred - Rectal Rectal Exam: deferred - Integumentary Integumentary: Present: clear - Musculoskeletal Musculoskeletal: strength equal bilaterally - Psychiatric Psychiatric: appropriate mood/affect, intact judgment & insight - Neurologic Neurologic: CNII-XII intact, moves all extremities Plan Activity: no restrictions Diet: low fat, low salt, diabetic Additional Instructions: F/u [facility] on 04/29/16 as per already scheduled appointment Follow up with: PRIMARY CARE, [Primary Care Provider] - 3-5 Days Prescriptions: Insulin Detemir [Levemir] 20 units SUB-Q QHS #1 units Insulin Glulisine [Apidra] 5 units SQ AC #1 units
[2016-04-18 11:40] VITALS: BP 111/70
== END 2016-04-18 12:53 | disposition home health service (06) | DRG 637 ==
LOC: ED 21:00 → CC1 04-16 00:34 → 3A 04-17 17:53
PROVIDERS: ADMIT Internal Medicine; ATTEND Hospitalist
DX: E10.10 Type 1 diabetes mellitus with ketoacidosis without coma (principal); G93.41 Metabolic encephalopathy; E87.0 Hyperosmolality and hypernatremia; D72.829 Elevated white blood cell count, unspecified; E87.5 Hyperkalemia; E86.0 Dehydration; R00.0 Tachycardia, unspecified; R56.9 Unspecified convulsions; Z91.19 Patient's noncompliance with other medical treatment and regimen
CPT/HCPCS: 36415; 71010; 80048; 81001; 81025; 82010; 82140; 82550; 82553; 82805; 82962; 83735; 84100; 84439; 84443; 84484; 85007; 85025; 85027; 87040; 93005; 93010; 96361; 96365; 96375; J0696; J1650; J1815; J1818; J2405; J2543; J7030